=== PATIENT | female | born 1990 | race Caucasian/White ===

== ENCOUNTER → 2016-12-06 | Outpatient (CLI) | payer OTHER, MEDICARE ==
[~2016-12-06] MED LIST: ALBUTEROL SULFAT3 M3 IH; CELEBREX50 MG PO; CYMBALTA 30MG30 MG PO; DESYREL 50MG50 MG PO; IPRATROPIUM BROM3 M1 IH; IRON325 M1 PO; LEXAPRO 5MG5 MG PO; LOPRESSOR 225 MG/TAB PO; MONODOX100 PO; NORCO 325 MG-51 TAB PO; PREDNISONE20 MG PO; PRILOSEC10 MG PO; REXULTI2 MG PO; SEROQUEL 2525 MG/TAB PO
== END ==
LOC: COL.RAD 12-04 13:30
DX: R06.02 Shortness of breath (principal); R00.0 Tachycardia, unspecified; I08.1 Rheumatic disorders of both mitral and tricuspid valves
CPT/HCPCS: Q9967